=== PATIENT | male | born 1985 | race Two or more races ===

== ENCOUNTER 2018-06-14 16:37 | Emergency (ER) | payer SELFPAY ==
[~2018-06-14] VITALS: Ht 170.2 cm; Wt 90.7 kg
[2018-06-14 16:38] VITALS: BP 142/63
[2018-06-14] MEDS ORDERED: IV NORMAL SALINE 1000ML BAG 1,000 ML IV ONE (17:00)
[2018-06-14] MEDS ORDERED: KETOROLAC 30 MG/ML VIAL. IV ONE (17:00)
[2018-06-14] MEDS ORDERED: TAMSULOSIN 0.4 MG CAP.ER.24H. PO ONE (17:00)
[2018-06-14] MEDS ORDERED: MORPHINE SULFATE 10 MG/ML VIAL. IV ONE (17:00)
[2018-06-14] MEDS ORDERED: ONDANSETRON PF 4 MG/2 ML VIAL. IV ONE (17:00)
[2018-06-14 17:01] LABS: BASO # 0.1 x10^3/uL (0.0-0.2); BASO % 1 % (0-3); EOS # 0.2 x10^3/uL (0.0-0.7); EOS % 1 % (0-3); HEMATOCRIT 45.7 % (39.0-53.0); HEMOGLOBIN 15.9 g/dL (13.0-17.5); LYMPH # 4.1 x10^3/uL (1.0-4.8); LYMPH % 24 % (24-48); MEAN CORPUSCULAR HEMOGLOBIN 31 pg (25-35); MEAN CORPUSCULAR HGB CONC 35 g/dL (31-37); MEAN CORPUSCULAR VOLUME 89 fL (79-100); MONO # 1.8 x10^3/uL (0.0-1.1); MONO % 10 % (0-9); NEUT # 11.1 x10^3uL (1.8-7.7); NEUT % 65 % (31-73); PLATELET COUNT 313 x10^3/uL (140-400); RED BLOOD COUNT 5.15 x10^6/uL (4.30-5.70); RED CELL DISTRIBUTION WIDTH 12.8 % (11.5-14.5); WHITE BLOOD COUNT 17.2 x10^3/uL (4.0-11.0)
[2018-06-14 17:11] LABS: CREATININE 1.1 mg/dL (0.7-1.3); GFR 77.1
[2018-06-14 17:17] LABS: ALBUMIN 3.7 g/dL (3.4-5.0); TOTAL BILIRUBIN 0.4 mg/dL (0.2-1.0); TOTAL PROTEIN 7.4 g/dL (6.4-8.2)
--- NOTE | 2018-06-14 17:56 | RAD ---
CT abdomen and pelvis without contrast 06/14/2018 CLINICAL INDICATION: Right-sided flank pain COMPARISON: None. TECHNIQUE: Multiple CT images of the abdomen and pelvis were obtained without contrast. *One or more of the following individualized dose reduction techniques were utilized for this examination: 1. Automated exposure control. 2. Adjustment of the mA and/or kV according to patient size. 3. Use of iterative reconstruction technique. FINDINGS: Heart size is normal. Visualized lung bases are clear. Evaluation of the solid abdominal pelvic viscera, lymphadenopathy and vasculature is limited in the absence of intravenous contrast. Unenhanced contours of the liver, gallbladder, spleen, adrenal glands, pancreas and left kidney are grossly unremarkable. No left-sided hydronephrosis or nephrolithiasis. There is a nonobstructive 3 mm calculus at the right UVJ series 2/image 190. There are two punctate 2 to 3 mm nonobstructive calculi in the inferior pole the right kidney. Abdominal aorta normal in caliber. There is thinning or absence of the gastric wall near the cardia and may represent a fluid-filled gastric diverticulum versus thickening of the wall due to distention. Small and large bowel loops are normal in caliber without obstruction. No abdominal free fluid. No pneumoperitoneum. Appendix is normal in appearance. Mildly distended and unopacified urinary bladder is otherwise unremarkable. Prostate seminal vesicles grossly unremarkable. There is transitional lumbosacral vertebral anatomy with partial lumbarization of S1. IMPRESSION: 1. Nonobstructive 3 mm right UVJ calculus. 2. Nonobstructive right nephrolithiasis. Electronically signed by: Luciano Cartwright MD (06/14/2018 5:53 PM) [facility]
--- NOTE | 2018-06-14 18:04 | PHYS DOC ---
Past Medical History Past Medical History: No Pertinent History Past Surgical History: Other Additional Past Surgical Histo: LEFT CLAVICAL, RIGHT HIP Alcohol Use: Occasionally Drug Use: None Adult General Chief Complaint Chief Complaint: FLANK PAIN HPI HPI Patient is a 32 year old male with no significant medical history who presents today complaining of 10 out of 10 sharp intermittent right flank pain radiating to the right groin that has been going on intermittently since yesterday and got worse this afternoon. Patient denies any nausea vomiting. He states he has slight difficulty voiding. Denies any hematuria. Denies any previous history of kidney stones. Review of Systems Review of Systems Constitutional: Denies fever or chills [] Eyes: Denies change in visual acuity, redness, or eye pain [] HENT: Denies nasal congestion or sore throat [] Respiratory: Denies cough or shortness of breath [] Cardiovascular: No additional information not addressed in HPI [] GI: Denies abdominal pain, nausea, vomiting, bloody stools or diarrhea [] : Reports right flank pain radiating to the groin with difficulty voiding. Denies dysuria or hematuria [] Musculoskeletal: Denies back pain or joint pain [] Integument: Denies rash or skin lesions [] Neurologic: Denies headache, focal weakness or sensory changes [] All other systems were reviewed and found to be within normal limits, except as documented in this note. Current Medications Current Medications Current Medications Medications (Trade) Dose Ordered Sig/[facility] Start Time Stop Time Status Last Admin Dose Admin Ketorolac Tromethamine (Toradol 30mg Vial) 30 mg 1X ONCE 06/14/18 17:00 06/14/18 17:08 DC 06/14/18 17:16 30 MG Morphine Sulfate (Morphine Sulfate) 5 mg 1X ONCE 06/14/18 17:00 06/14/18 17:08 DC 06/14/18 17:19 5 MG Ondansetron HCl (Zofran) 4 mg 1X ONCE 06/14/18 17:00 06/14/18 17:08 DC 06/14/18 17:14 4 MG Sodium Chloride 1,000 ml @ 1,000 mls/hr 1X ONCE 06/14/18 17:00 06/14/18 17:59 DC 06/14/18 17:12 1,000 MLS/HR Tamsulosin HCl (Flomax) 0.4 mg 1X ONCE 06/14/18 17:00 06/14/18 17:08 DC 06/14/18 17:19 0.4 MG Allergies Allergies Allergies Coded Allergies Type Severity Reaction Last Updated Verified No Known Drug Allergies 06/14/18 No Physical Exam Physical Exam Constitutional: Well developed, well nourished, no acute distress, non-toxic appearance. [] HENT: Normocephalic, atraumatic, bilateral external ears normal, oropharynx moist, no oral exudates, nose normal. [] Eyes: PERRLA, EOMI, conjunctiva normal, no discharge. [] Neck: Normal range of motion, no tenderness, supple, no stridor. [] Cardiovascular:Heart rate regular rhythm, no murmur [] Lungs & Thorax: Bilateral breath sounds clear to auscultation [] Abdomen: Bowel sounds normal, soft, no tenderness, no masses, no pulsatile masses. [] Skin: Warm, dry, no erythema, no rash. [] Back: No tenderness, moderate right CVA tenderness. [] Extremities: No tenderness, no cyanosis, no clubbing, ROM intact, no edema. [] Neurologic: Alert and oriented X 3, normal motor function, normal sensory function, no focal deficits noted. [] Psychologic: Affect normal, judgement normal, mood normal. [] Current Patient Data Vital Signs Vital Signs Date Time Temp Pulse Resp B/P (MAP) Pulse Ox O2 Delivery O2 Flow Rate FiO2 06/14/18 17:19 22 99 Room Air 06/14/18 16:38 98.2 71 142/63 (89) 98.2 Lab Values Laboratory Tests Test 06/14/18 16:54 06/14/18 18:00 White Blood Count 17.2 x10^3/uL (4.0-11.0) H Red Blood Count 5.15 x10^6/uL (4.30-5.70) Hemoglobin 15.9 g/dL (13.0-17.5) Hematocrit 45.7 % (39.0-53.0) Mean Corpuscular Volume 89 fL (79-100) Mean Corpuscular Hemoglobin 31 pg (25-35) Mean Corpuscular Hemoglobin Concent 35 g/dL (31-37) Red Cell Distribution Width 12.8 % (11.5-14.5) Platelet Count 313 x10^3/uL (140-400) Neutrophils (%) (Auto) 65 % (31-73) Lymphocytes (%) (Auto) 24 % (24-48) Monocytes (%) (Auto) 10 % (0-9) H Eosinophils (%) (Auto) 1 % (0-3) Basophils (%) (Auto) 1 % (0-3) Neutrophils # (Auto) 11.1 x10^3uL (1.8-7.7) H Lymphocytes # (Auto) 4.1 x10^3/uL (1.0-4.8) Monocytes # (Auto) 1.8 x10^3/uL (0.0-1.1) H Eosinophils # (Auto) 0.2 x10^3/uL (0.0-0.7) Basophils # (Auto) 0.1 x10^3/uL (0.0-0.2) Sodium Level 142 mmol/L (136-145) Potassium Level 4.0 mmol/L (3.5-5.1) Chloride Level 104 mmol/L (98-107) Carbon Dioxide Level 28 mmol/L (21-32) Anion Gap 10 (6-14) Blood Urea Nitrogen 25 mg/dL (8-26) Creatinine 1.1 mg/dL (0.7-1.3) Estimated GFR (Cockcroft-Gault) 77.1 BUN/Creatinine Ratio 23 (6-20) H Glucose Level 102 mg/dL (70-99) H Calcium Level 9.0 mg/dL (8.5-10.1) Total Bilirubin 0.4 mg/dL (0.2-1.0) Aspartate Amino Transferase (AST) 19 U/L (15-37) Alanine Aminotransferase (ALT) 49 U/L (16-63) Alkaline Phosphatase 72 U/L (46-116) Total Protein 7.4 g/dL (6.4-8.2) Albumin 3.7 g/dL (3.4-5.0) Albumin/Globulin Ratio 1.0 (1.0-1.7) Lipase 135 U/L (73-393) Urine Collection Type Unknown Urine Color Yellow Urine Clarity Clear Urine pH 6.0 Urine Specific [place] >=1.030 Urine Protein Negative mg/dL (NEG-TRACE) Urine Glucose (UA) Negative mg/dL (NEG) Urine Ketones (Stick) Negative mg/dL (NEG) Urine Blood Large (NEG) Urine Nitrite Negative (NEG) Urine Bilirubin Negative (NEG) Urine Urobilinogen Dipstick 0.2 mg/dL (0.2 mg/dL) Urine Leukocyte Esterase Negative (NEG) Urine RBC Tntc /HPF (0-2) Urine WBC 0 /HPF (0-4) Urine Squamous Epithelial Cells Occ /LPF Urine Bacteria 0 /HPF (0-FEW) Urine Mucus Mod /LPF Laboratory Tests 06/14/18 16:54 Laboratory Tests 06/14/18 16:54 EKG EKG [] Radiology/Procedures Radiology/Procedures []PROCEDURE: CT ABDOMEN PELVIS WO CONTRAST CT abdomen and pelvis without contrast 06/14/2018 CLINICAL INDICATION: Right-sided flank pain COMPARISON: None. TECHNIQUE: Multiple CT images of the abdomen and pelvis were obtained without contrast. *One or more of the following individualized dose reduction techniques were utilized for this examination: 1. Automated exposure control. 2. Adjustment of the mA and/or kV according to patient size. 3. Use of iterative reconstruction technique. FINDINGS: Heart size is normal. Visualized lung bases are clear. Evaluation of the solid abdominal pelvic viscera, lymphadenopathy and vasculature is limited in the absence of intravenous contrast. Unenhanced contours of the liver, gallbladder, spleen, adrenal glands, pancreas and left kidney are grossly unremarkable. No left-sided hydronephrosis or nephrolithiasis. There is a nonobstructive 3 mm calculus at the right UVJ series 2/image 190. There are two punctate 2 to 3 mm nonobstructive calculi in the inferior pole the right kidney. Abdominal aorta normal in caliber. There is thinning or absence of the gastric wall near the cardia and may represent a fluid-filled gastric diverticulum versus thickening of the wall due to distention. Small and large bowel loops are normal in caliber without obstruction. No abdominal free fluid. No pneumoperitoneum. Appendix is normal in appearance. Mildly distended and unopacified urinary bladder is otherwise unremarkable. Prostate seminal vesicles grossly unremarkable. There is transitional lumbosacral vertebral anatomy with partial lumbarization of S1. IMPRESSION: 1. Nonobstructive 3 mm right UVJ calculus. 2. Nonobstructive right nephrolithiasis. Electronically signed by: Dexter Cartwright MD (06/14/2018 5:53 PM) [facility] DICTATED and SIGNED BY: DEXTER CARTWRIGHT MD DATE: 06/14/185 Course & Med Decision Making Course & Med Decision Making Pertinent Labs and Imaging studies reviewed. (See chart for details) This is a 32-year-old male patient presenting to the ED today with right flank pain that began yesterday. CBC with a WBC of 17.1 and a left shift, CMP with no acute findings. CT of the abdomen and pelvic was noted for nonobstructive 3 mm right UVJ calculus as well as nonobstructive right nephrolithiasis. UA negative for infection. Patient was given Flomax, IV fluids, Zofran, morphine and Toradol. Pain is well controlled. Patient will be discharged with Cipro-while we wait for the urine culture, Flomax, Zofran and hydrocodone as needed for pain. Provided urologist to follow-up with next week. Instructed to return to the ED at any point symptoms worsen. Dragon Disclaimer Dragon Disclaimer This electronic medical record was generated, in whole or in part, using a voice recognition dictation system. Departure Departure Impression: Primary Impression: Renal calculus, right Disposition: 01 HOME, SELF-CARE Condition: STABLE Referrals: BRITNEY FELIZ MD follow up in one week Patient Instructions: Kidney Stones, [id number] Additional Instructions: You were evaluated in the emergency room and noted to have a 3 mm kidney stone. Typically people are able to pass this size of a stone. We recommend you push fluids. Take the prescribed medications as ordered. Please come back to the emergency room at any point symptoms worsen. Scripts Tamsulosin Hcl (FLOMAX) 0.4 Mg Cap.er.24h 1 CAP PO DAILY, #7 CAP 0 Refills Prov: MUTUNGA,BOUBACAR POLICE ARTIST 06/14/18 Hydrocodone/Apap 5-325 (NORCO 5-325 TABLET) 1 Each Tablet 1 TAB PO Q6HRS PRN for PAIN, #20 TAB Prov: MUTUNGA,BOUBACAR POLICE ARTIST 06/14/18 Ciprofloxacin Hcl (CIPRO) 500 Mg Tablet 1 TAB PO BID, #14 TAB Prov: MUTUNGA,BOUBACRA POLICE ARTIST 06/14/18 Ondansetron (ZOFRAN ODT) 4 Mg Tab.rapdis 1 TAB SL Q8HRS, #20 TAB Prov: MUTUNGABOUBACAR POLICE ARTIST 06/14/18 BOUBACAR MCKEON APRN Jun 14, 2018 18:04
[2018-06-14 18:10] LABS: BILIRUBIN,URINE NEGATIVE (NEG); CLARITY,URINE CLEAR; COLOR,URINE YELLOW; NITRITE,URINE NEGATIVE (NEG); PROTEIN,URINE NEGATIVE (NEG-TRACE); UROBILINOGEN,URINE 0.2 mg/dL (0.2 mg/dL)
[2018-06-14 18:19] LABS: BACTERIA,URINE 0 /HPF (0-FEW); RBC,URINE TNTC /HPF (0-2); SQUAMOUS EPITHELIAL CELL,UR OCC /LPF; WBC,URINE 0 /HPF (0-4)
[2018-06-14] MEDS ORDERED: ONDA4TAB10 SL (18:26)
[2018-06-14] MEDS ORDERED: HYDR-971 PO (18:26)
[2018-06-14] MEDS ORDERED: CIPR500T94 PO (18:26)
[2018-06-14] MEDS ORDERED: TAMS0.4C97 PO (18:33)
== END 2018-06-14 18:46 | disposition home or self-care (01) ==
LOC: ER 16:37
DX: N20.0 Calculus of kidney (principal)
CPT/HCPCS: 36415; 74176; 80053; 81001; 83690; 85025; 96374; 96375; 99285; J1885; J2270; J2405; J7030

== ENCOUNTER 2018-06-17 23:21 | Emergency (ER) | payer BC, OTHER ==
[~2018-06-17] VITALS: Ht 170.2 cm; Wt 90.7 kg
[~2018-06-17 23:21] MED LIST: CIPR500T94 PO; HYDR-971 PO; ONDA4TAB10 SL; TAMS0.4C97 PO
[2018-06-17] MEDS ORDERED: IV NORMAL SALINE 1000ML BAG 1,000 ML IV ONE (23:45)
[2018-06-17] MEDS ORDERED: KETOROLAC 30 MG/ML VIAL. IV ONE (23:55)
--- NOTE | 2018-06-17 23:56 | PHYS DOC ---
Past Medical History Past Medical History: No Pertinent History Past Surgical History: Other Additional Past Surgical Histo: LEFT CLAVICAL, RIGHT HIP Alcohol Use: Occasionally Drug Use: None Adult General Chief Complaint Chief Complaint: FLANK PAIN HPI HPI Patient is a 32 year old male who presents with patient was here 3 days ago diagnosed with a 3 mm kidney stone. Patient states he hasn't called a urologist yet and the pain has been tolerable with Flomax, [place] and pushing fluids. Patient states that today he began having right sided abdominal pain that wraps around to his right flank down into his groin and he started taking hydrocodone and Zofran and states that the pain was just unbearable. Review of Systems Review of Systems Constitutional: Denies fever or chills [] Eyes: Denies change in visual acuity, redness, or eye pain [] HENT: Denies nasal congestion or sore throat [] Respiratory: Denies cough or shortness of breath [] Cardiovascular: No additional information not addressed in HPI [] GI: Right upper and lower abdominal pain, nausea. Right groin pain. Denies vomiting, bloody stools or diarrhea [] : Denies dysuria or hematuria [] Musculoskeletal: Denies back pain or joint pain [] Integument: Denies rash or skin lesions [] Neurologic: Denies headache, focal weakness or sensory changes [] Endocrine: Denies polyuria or polydipsia [] All other systems were reviewed and found to be within normal limits, except as documented in this note. Current Medications Current Medications Current Medications Medications (Trade) Dose Ordered Sig/[facility] Start Time Stop Time Status Last Admin Dose Admin Ketorolac Tromethamine (Toradol 30mg Vial) 30 mg 1X ONCE 06/17/18 23:55 06/17/18 23:56 DC 06/17/18 23:55 30 MG Sodium Chloride 1,000 ml @ 1,000 mls/hr 1X ONCE 06/17/18 23:45 06/18/18 00:44 DC 06/17/18 23:45 1,000 MLS/HR Allergies Allergies Allergies Coded Allergies Type Severity Reaction Last Updated Verified No Known Drug Allergies 06/14/18 No Physical Exam Physical Exam Constitutional: Well developed, well nourished, no acute distress, non-toxic appearance. [] HENT: Normocephalic, atraumatic, bilateral external ears normal, oropharynx moist, no oral exudates, nose normal. [] Eyes: PERRLA, EOMI, conjunctiva normal, no discharge. [] Neck: Normal range of motion, no tenderness, supple, no stridor. [] Cardiovascular:Heart rate regular rhythm, no murmur [] Lungs & Thorax: Bilateral breath sounds clear to auscultation [] Abdomen: Bowel sounds normal, soft, Right mid and lower side tenderness, no masses, no pulsatile masses. [] Skin: Warm, dry, no erythema, no rash. [] Back: No tenderness, CVA tenderness. [] Extremities: No tenderness, no cyanosis, no clubbing, ROM intact, no edema. [] Neurologic: Alert and oriented X 3, normal motor function, normal sensory function, no focal deficits noted. [] Psychologic: Affect normal, judgement normal, mood normal. [] Current Patient Data Vital Signs Vital Signs Date Time Temp Pulse Resp B/P (MAP) Pulse Ox O2 Delivery O2 Flow Rate FiO2 06/17/18 23:31 98.0 69 18 123/81 (95) 97 Room Air 98.0 Lab Values Laboratory Tests Test 06/17/18 23:40 06/18/18 00:18 Sodium Level 137 mmol/L (136-145) Potassium Level 4.2 mmol/L (3.5-5.1) Chloride Level 101 mmol/L (98-107) Carbon Dioxide Level 28 mmol/L (21-32) Anion Gap 8 (6-14) Blood Urea Nitrogen 28 mg/dL (8-26) H Creatinine 1.2 mg/dL (0.7-1.3) Estimated GFR (Cockcroft-Gault) 69.7 Glucose Level 110 mg/dL (70-99) H Calcium Level 9.6 mg/dL (8.5-10.1) Urine Collection Type Unknown Urine Color Yellow Urine Clarity Clear Urine pH 6.0 Urine Specific [place] 1.025 Urine Protein Negative mg/dL (NEG-TRACE) Urine Glucose (UA) Negative mg/dL (NEG) Urine Ketones (Stick) Negative mg/dL (NEG) Urine Blood Moderate (NEG) Urine Nitrite Negative (NEG) Urine Bilirubin Negative (NEG) Urine Urobilinogen Dipstick 0.2 mg/dL (0.2 mg/dL) Urine Leukocyte Esterase Negative (NEG) Urine RBC 11-20 /HPF (0-2) Urine WBC Occ /HPF (0-4) Urine Squamous Epithelial Cells Occ /LPF Urine Bacteria 0 /HPF (0-FEW) Urine Mucus Mod /LPF Laboratory Tests 06/17/18 23:40 EKG EKG [] Radiology/Procedures Radiology/Procedures US Abd Impressions: [facility] [address] [place] [address] IMAGING REPORT Signed PATIENT: JASMINE MAK ACCOUNT: [id number] : 1985 LOCATION: ER AGE: 32 SEX: M EXAM STATUS: REG ER ORD. PHYSICIAN: BIANKA BERMUDEZ APRN REASON: Kidney stone progression from 06/14, hydronephrosis PROCEDURE: RENAL COMPLETE RIGHT INDICATION: RT FLANK GROIN PAIN COMPARISON: CT June 14, 2018 TECHNIQUE: Grayscale and color ultrasound images obtained of the right kidney FINDINGS: Right Kidney: 11.4 mm. Mild right hydronephrosis. Urinary bladder is partially distended. Suspected 5 mm stone at right ureterovesicular junction. IMPRESSION: Mild right-sided hydronephrosis with suspected stone at the right ureterovesicular junction. Electronically signed by: Rigoberto Gustafson MD (06/18/2018 12:31 AM) [facility] DICTATED and SIGNED BY: RIGOBERTO GUSTAFSON MD DATE: 06/18/18 0027 Course & Med Decision Making Course & Med Decision Making Patient is a 32 year old male who presents with patient was here 3 days ago diagnosed with a 3 mm kidney stone. Patient states he hasn't called a urologist yet and the pain has been tolerable with Flomax, [place] and pushing fluids. Patient states that today he began having right sided abdominal pain that wraps around to his right flank down into his groin and he started taking hydrocodone and Zofran and states that the pain was just unbearable. Patient is alert and oriented. Skin is pink warm and dry. Lungs are clear to auscultation all lobes. Right side of abdomen and right groin is tender to palpation. CVA tenderness. States he has urinating okay. I have ordered IV Toradol and Saline bolus. Abdomen is otherwise soft and nontender in other quadrants. Afebrile. Vital sign are within normal range. Blood work is unremarkable and urine is without infection. I will give the patient another prescription for [place]. US shows Mild right-sided hydronephrosis with suspected stone at the right ureterovesicular junction. Patient should follow up with Urology as previously told. Dragon Disclaimer Dragon Disclaimer This electronic medical record was generated, in whole or in part, using a voice recognition dictation system. Departure Departure Impression: Primary Impression: Renal calculus, right Disposition: 01 HOME, SELF-CARE Condition: STABLE Referrals: UNKNOWN PCP NAME (PCP) GHULAM WILLS MD Patient Instructions: Kidney Stones Additional Instructions: Follow up with Urology. Take medications as prescribed. Scripts Hydrocodone/Apap 5-325 (NORCO 5-325 TABLET) 1 Each Tablet 1-2 TAB PO Q4-6HRS, #20 TAB Prov: BIANKA BERMUDEZ APRN 06/18/18 BIANKA BERMUDEZ APRN Jun 17, 2018 23:56
[2018-06-18 00:06] LABS: CALCIUM 9.6 mg/dL (8.5-10.1); CREATININE 1.2 mg/dL (0.7-1.3); GFR 69.7; POTASSIUM 4.2 mmol/L (3.5-5.1)
[2018-06-18 00:29] LABS: BILIRUBIN,URINE NEGATIVE (NEG); CLARITY,URINE CLEAR; COLOR,URINE YELLOW; NITRITE,URINE NEGATIVE (NEG); PROTEIN,URINE NEGATIVE (NEG-TRACE); UROBILINOGEN,URINE 0.2 mg/dL (0.2 mg/dL)
[2018-06-18 00:33] LABS: BACTERIA,URINE 0 /HPF (0-FEW); SQUAMOUS EPITHELIAL CELL,UR OCC /LPF; WBC,URINE OCC /HPF (0-4)
--- NOTE | 2018-06-18 00:34 | RAD ---
INDICATION: RT FLANK GROIN PAIN COMPARISON: CT June 14, 2018 TECHNIQUE: Grayscale and color ultrasound images obtained of the right kidney FINDINGS: Right Kidney: 11.4 mm. Mild right hydronephrosis. Urinary bladder is partially distended. Suspected 5 mm stone at right ureterovesicular junction. IMPRESSION: Mild right-sided hydronephrosis with suspected stone at the right ureterovesicular junction. Electronically signed by: Donnell Kingsley MD (06/18/2018 12:31 AM) [facility]
[2018-06-18 00:35] VITALS: BP 132/74
[2018-06-18] MEDS ORDERED: HYDR-971 PO (00:40)
== END 2018-06-18 00:56 | disposition home or self-care (01) ==
LOC: ER 23:21
DX: N13.2 Hydronephrosis with renal and ureteral calculous obstruction (principal); R10.31 Right lower quadrant pain; R10.11 Right upper quadrant pain
CPT/HCPCS: 36415; 76775; 80048; 81001; 96374; 99285; J1885; J7030